=== PATIENT | male | born 2000 | race Caucasian/White ===

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

== ENCOUNTER 2021-08-16 15:15 | Outpatient (RCR) | payer OTHER ==
[~2021-08-16 15:15] MED LIST: CYMBALTA 30MG30 MG PO; ULTRAM 50MG TAB50 MG PO
== END 2021-08-22 | disposition home or self-care (01) ==
LOC: PT.GENESIS
DX: M51.37 Other intervertebral disc degeneration, lumbosacral region (principal)